=== PATIENT | male | born 1985 | race Caucasian/White ===

== ENCOUNTER 2024-05-13 14:40 | Outpatient (CLI) | payer BC ==
[2024-05-13 15:26] LABS: ALBUMIN 4.5 g/dL (3.2-5.5); ALBUMIN/GLOBULIN RATIO 1.7 (1.0-2.2); ALKALINE PHOSPHATASE 76 IU/L (42-121); ALT ALANINE AMINOTRANSFERASE 28 IU/L (10-60); AST ASPARTATE AMINOTRANSFERASE 22 IU/L (10-42); BILIRUBIN,TOTAL 0.5 mg/dL (0.2-1.0); BUN - BLOOD UREA NITROGEN 17 mg/dL (6-20); CALCIUM 9.7 mg/dL (8.5-10.3); CARBON DIOXIDE - CO2 31 mmol/L (21-32); CHLORIDE 102 mmol/L (101-111); CHOL/HDL RATIO 5.5 (<5.0); CHOLESTEROL 175 mg/dL; CREATININE 0.9 mg/dL (0.6-1.3); GFR - MDRD 93 (>89); GLUCOSE 114 mg/dL (74-104); HDL CHOLESTEROL 32 mg/dL; LDL CHOLESTEROL,CALCULATED 81 mg/dL; LDL/HDL RATIO 2.5 (<3.6); POTASSIUM 2.9 mmol/L (3.5-4.5); SODIUM 140 mmol/L (135-145); TOTAL PROTEIN 7.2 g/dL (6.4-8.9); TRIGLYCERIDES 308 mg/dL; VLDL CHOLESTEROL 62 mg/dL
[2024-05-14 06:13] LABS: VITAMIN D 25-HYDROXY 43.9 ng/mL (30.0-100.0)
== END 2024-05-13 14:41 | disposition home or self-care (01) ==
LOC: LAB 14:40
PROVIDERS: ATTEND Nurse Practitioner Family
DX: R79.89 Other specified abnormal findings of blood chemistry (principal); K76.0 Fatty (change of) liver, not elsewhere classified; I10 Essential (primary) hypertension; E55.9 Vitamin D deficiency, unspecified; N43.3 Hydrocele, unspecified; E29.1 Testicular hypofunction; B27.09 Gammaherpesviral mononucleosis with other complications
CPT/HCPCS: 36415; 80053; 80061; 82306; 83090; 83721; 84153; 84402; 84403; 87798

== ENCOUNTER 2024-05-13 14:43 | Outpatient (CLI) | payer BC ==
--- NOTE | 2024-05-14 14:56 | Ultrasound Report ---
PROCEDURE: Soft Tissue Head or Neck INDICATIONS: SKIN NODULE OF NECK TECHNIQUE: Real-time scanning was performed of the neck, with image documentation. COMPARISON: None FINDINGS: Targeted ultrasound of the neck demonstrates normal-appearing bilateral submandibular glands. IMPRESSION: Normal neck ultrasound. Normal sonographic appearance of the submandibular glands. Reviewed by: Reagan Yousif MD on 05/14/2024 2:55 PM PDT Approved by: Reagan Yousif MD on 05/14/2024 2:55 PM PDT Station ID: [id number]
== END 2024-05-13 14:44 | disposition home or self-care (01) ==
LOC: DI 14:43
PROVIDERS: ATTEND Nurse Practitioner Family
DX: R22.1 Localized swelling, mass and lump, neck (principal); R79.89 Other specified abnormal findings of blood chemistry; K76.0 Fatty (change of) liver, not elsewhere classified; E55.9 Vitamin D deficiency, unspecified; N43.3 Hydrocele, unspecified; E29.1 Testicular hypofunction; B27.09 Gammaherpesviral mononucleosis with other complications
CPT/HCPCS: 36415; 80053; 80061; 82306; 83090; 83721; 84153; 84402; 84403; 87798

== ENCOUNTER 2024-06-08 07:24 | Outpatient (CLI) | payer BC ==
--- NOTE | 2024-06-08 21:06 | Ultrasound Report ---
PROCEDURE: Abdomen Limited INDICATIONS: FATTY LIVER TECHNIQUE: Real-time focused scanning was performed of the abdomen, with image documentation. COMPARISONS: None. FINDINGS: Liver: The liver demonstrates normal size. The liver demonstrates moderately increased echogenicit y, which limits ultrasound sensitivity for detection of masses. The main portal vein demonstrates nor mal size and hepatopedal flow. Gallbladder: There is a 7 mm mobile gallstone seen. The gallbladder wall does not appear thickened. T here is no specific pericholecystic fluid. The sonographic Brown's sign is negative. Biliary ducts: Intrahepatic bile ducts are non-dilated. Extrahepatic bile duct caliber measures 4 m m. Normal is 6-7 mm or less in diameter, or 10 mm or less post-cholecystectomy. Pancreas: Visualized portions of the pancreas are sonographically normal. Right kidney: Normal in size and echotexture. Right kidney measures 11.9 cm long. No hydronephrosis or nephrolithiasis. No solid masses. No complex renal cystic lesions which require follow-up. Miscellaneous: No free abdominal fluid. IMPRESSION: Enlarged, fatty infiltrated liver. A mobile gallstone can be seen within the gallbladder, without additional sonographic signs of cholec ystitis. No biliary dilatation is seen. Reviewed by: David Samaniego MD on 06/08/2024 8:04 PM SANDRA Approved by: David Samaniego MD on 06/08/2024 8:04 PM SANDRA Station ID: [id number]
== END 2024-06-08 07:25 | disposition home or self-care (01) ==
LOC: DI 07:24
PROVIDERS: ATTEND Nurse Practitioner Family
DX: K76.0 Fatty (change of) liver, not elsewhere classified (principal); K80.20 Calculus of gallbladder without cholecystitis without obstruction